=== PATIENT | male | born 2000 | race Caucasian/White ===

== ENCOUNTER 2021-05-05 17:30 | Emergency (ER) | payer BC, SELFPAY ==
[2021-05-05 19:07] VITALS: BP 158/94; PULSE 105; RESP 20; TEMP 36.9; O2SAT 97; BMI 42.7
--- NOTE | 2021-05-05 21:55 | ED_ITS ---
HPI - Anxiety General Chief Complaint: Anxiety Stated Complaint: panick attacks Time Seen by Provider: 05/05/21 21:22 Source: patient and family Mode of arrival: ambulatory Limitations: no limitations History of Present Illness HPI narrative: Patient comes emergency room complaining of anxiety. Patient states that almost a month ago he had strep throat with urge causes uvula to be swollen. Patient states that since that incident, he has panic attacks, thinks that his throat is closing, starts having tachycardia, palpitations, shortness of breath, and starts crying. Patient has an appointment coming up with his PCP in 2 weeks, patient requesting p.r.n. medication until he is seen by his PCP. Patient states that he has been seen multiple times at [facility], worked up for tachycardia, given the diagnosis of anxiety Related Data Previous Rx's Medication Instructions Recorded hydroxyzine HCl 50 mg tablet 50 mg PO TID PRN #30 tab 05/05/21 lorazepam 0.5 mg tablet (Ativan) 0.5 mg PO TID PRN #10 tab 05/05/21 Allergies Allergy/AdvReac Type Severity Reaction Status Date / Time No Known Allergies Allergy Verified 05/05/21 19:18 Review of Systems Review of Systems: Constitutional : No Weight loss, No Fever, No Chills, No Night Sweats, No Fatigue, No Malaise ENT/Mouth : No Hearing loss, No Ear Pain, No Nasal Congestion, No Sinus Pain, No Hoarseness, No sore throat, No Rhinorrhea, No Swallowing Difficulty Eyes: No Eye Pain, No Swelling, No Redness, No Foreign Body, No Discharge, No Vision Changes Cardiovascular : No Chest Pain, No SOB, No Dyspnea on Exertion, No Orthopnea, No Edema, No Palpitations Respiratory : No Cough, No Sputum, No Wheezing, No Smoke Exposure, No Dyspnea Gastrointestinal : No Nausea, No Vomiting, No Diarrhea, No Constipation, No abdominal Pain, No Hematochezia, No Melena Genitourinary : no irregular bleeding, No Dysuria, No Urinary Frequency, No Hematuria, No Urinary Incontinence, No Urgency, No Flank Pain, No Urinary Flow Changes, No Hesitancy Musculoskeletal : No joint pain, No Myalgias, No Joint Swelling Skin : No Skin Lesions, No rash Neuro : No Weakness, No Numbness, No Paresthesias, No Loss of Consciousness, No Dizziness, No Headache Psych : Complaining of having anxiety and panic attacks, no depression, no SI or HI Heme/Lymph: No Bruising, No Bleeding,No Lymphadenopathy Endocrine : No Polyuria, No Polydipsia, No Temperature Intolerance PMF Past Medical History Medical History ADHD Anxiety Autism Depression OCD (obsessive compulsive disorder) Strep throat Social History Social History Advance Directives: No Advance Directives Information Provided: No Physical Exam Vital Signs: Vital Signs: Last Vital Signs Temp 98.5 F 05/05/21 19:07 Pulse 105 H 05/05/21 19:07 Resp 20 05/05/21 19:07 BP 158/94 H 05/05/21 19:07 Pulse Ox 97 05/05/21 19:07 Body Mass Index 42.7 Const: Other: Appearance: Alert. Oriented X3. No acute distress. Anxious Eyes: Pupils equal, round and reactive to light. ENT: Pharynx normal. Neck: Normal inspection. Neck supple. No lymph nodes noted. No crepitus CVS: Normal heart rate and rhythm. Pulses normal. Normal S1 and S2 Respiratory: No respiratory distress. Breath sounds normal. No Wheezing. No rales Abdomen: Soft and nontender. No rigidity. No distention. good BS x4 Skin: Skin warm and dry. Normal skin color. Normal skin turgor. Extremities: No lower extremity edema. No lower extremity edema. No Lacerations. No Rash Neuro: Oriented X 3. No motor deficit. No sensory deficit. Moving all extermities. No slurred speech. Course Course Course Narrative: I discussed with the patient that we can give him p.r.n. medication well he is seen by his PCP. I discussed with him to try hydroxyzine, and in case of severe anxiety Ativan. I discussed with the patient and his mother that Ativan may create addiction Discharge Plan Discharge Clinical Impression: Anxiety Patient Disposition: Home, Self-Care Instructions: Anxiety (ED) Additional Instructions: For anxiety and panic attacks, try hydroxyzine 1st, use Ativan cautiously as it may cause dependence/ addiction. Please follow-up with your primary care physician tomorrow. If you have any worsening or new symptoms, please return to the emergency room or call 911 Prescriptions: New hydroxyzine HCl 50 mg tablet 50 mg PO TID PRN (Reason: nausea and vomiting) Qty: 30 RF: 0 lorazepam [Ativan] 0.5 mg tablet 0.5 mg PO TID PRN (Reason: anxiety) Qty: 10 RF: 0
[2021-05-05] MEDS: hydrOXYzine HCL 50 MG TABLET PO (22:35)
== END 2021-05-05 22:50 | disposition home or self-care (01) ==
PROVIDERS: Emergency Provider Emergency Medicine; PCP Internal Medicine
DX: F41.9 Anxiety disorder, unspecified (principal)
CPT/HCPCS: 99283